=== PATIENT | female | born 1990 | race Hispanic/Latino ===

== ENCOUNTER 2017-03-03 18:49 | Emergency (ER) | payer SELFPAY ==
[~2017-03-03] VITALS: Ht 154.9 cm; Wt 63.0 kg
[2017-03-03] MEDS ORDERED: NAPROSYN500 MG PO (21:03)
[2017-03-03 21:10] VITALS: BP 105/70
== END 2017-03-03 21:10 | disposition home or self-care (01) | DRG 605 ==
LOC: ED 18:49
DX: S00.83XA Contusion of other part of head, initial encounter (principal); S40.012A Contusion of left shoulder, initial encounter; Y00.XXXA Assault by blunt object, initial encounter